=== PATIENT | male | born 1975 | race Caucasian/White ===

== ENCOUNTER 2017-06-02 09:06 | Emergency (ER) | payer MEDICAID ==
[2017-06-02] MEDS: IPRATROPIUM (NEB) 0.5 MG/2.5 ML AMP HHN (10:39)
[2017-06-02] MEDS: ALBUTEROL 0.083% (NEB) 2.5 MG/3 ML AMP HHN (10:39)
== END 2017-06-02 11:43 | disposition home or self-care (01) ==
LOC: FTE 09:06
DX: J30.9 Allergic rhinitis, unspecified (principal)
CPT/HCPCS: 71045; 94664; 99284-25